=== PATIENT | female | born 1935 | race Caucasian/White ===

== ENCOUNTER → 2017-02-07 | Outpatient (CLI) | payer MEDICARE, OTHER | END | disposition home or self-care (01) | LOC: GMAJ 10:22 | PROVIDERS: ATTEND Family Medicine | DX: I10 Essential (primary) hypertension (principal); D51.3 Other dietary vitamin B12 deficiency anemia ==

== ENCOUNTER → 2017-06-06 | Outpatient (CLI) | payer MEDICARE, OTHER | LOC: GMAJ 10:17 | PROVIDERS: ATTEND Family Medicine | DX: E03.9 Hypothyroidism, unspecified (principal) ==

== ENCOUNTER 2017-10-18 10:31 | Emergency (ER) | payer MEDICARE, OTHER ==
[2017-10-18 11:30] VITALS: TEMP 97.7
[2017-10-18] MEDS ORDERED: HYDROcodone 5MG/APAP 325MG 1 EA TAB PO ONE (11:54)
--- NOTE | 2017-10-18 11:55 | RAD ---
EXAM DESCRIPTION: Ribs,Left 3 Views CLINICAL HISTORY: fall with rib injury COMPARISON: None Available. TECHNIQUE: AP And 2 oblique images left ribs. FINDINGS: Minimally displaced fractures of the lateral left eighth and ninth ribs. Nondisplaced fracture of the lateral left 10th rib. 2. Fracture sites in the ninth rib. No other fractures. Atelectasis in the left lung base. No pneumothorax. Bone density is decreased. Hydronephrosis in the left AC joint. No abnormal radiodense objects in the soft tissues. IMPRESSION: Minimally displaced fractures of the left lateral eighth and ninth ribs with 2 fracture sites in the ninth rib. Nondisplaced fracture lateral left 10th rib. Atelectasis in the left lung base. Electronically signed by: Elier Tirado MD 10/18/2017 11:54 AM [facility]
--- NOTE | 2017-10-18 11:58 | ED.PDOC ---
History of Present Illness - General Chief Complaint: General Stated Complaint: rib pain from fall this morning. 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 RIBS COLLIDED WITH TOILET. C/O L RIB PAIN. DENIES ANY OTHER PAIN. NO HEAD COLLISION. NO LOC. NO PAIN AT REST BUT PAIN WITH MVMT. NO PAIN WITH NL RESPIRATION BUT PAIN WITH DEEP BREATH. Severity: moderate Improving Factors: immobilization Worsening Factors: movement Associated Symptoms: denies symptoms Allergies/Adverse Reactions: Allergies NO KNOWN ALLERGY Allergy (Verified 11/15/16 18:19) Home Medications: Ambulatory Orders Amitriptyline HCl [Elavil] 50 mg PO DAILY 11/15/16 Aspirin [Aspirin Adult Low Dose] 81 mg PO DAILY 11/15/16 Atenolol [Tenormin] 50 mg PO BID 11/15/16 Insulin Glargine [Lantus Solostar] 10 unit SC DAILY 11/15/16 Levothyroxine Sodium [Synthroid] 112 mcg PO DAILY 11/15/16 Metformin HCl 1,000 mg PO BID 11/15/16 Omeprazole 40 mg PO DAILY 11/15/16 Pravastatin Sodium [Pravachol] 10 mg PO DAILY 11/15/16 Acetaminophen W/ Codeine [Tylenol W/ CODEINE #3] 1 ea PO Q6H PRN #30 10/18/17 Lisinopril 20 mg PO DAILY 10/18/17 Review of Systems - Review of Systems Constitutional: States: no symptoms reported EENTM: States: no symptoms reported Respiratory: Denies: cough, short of breath Musculoskeletal: Denies: back pain, neck pain Neurological: Denies: headache, paresthesia All other Systems: Reviewed and Negative Past Medical History (General) - Patient Medical History Hx Seizures: No Hx Stroke: No Hx Dementia: No Hx Asthma: No Hx of COPD: No Hx Cardiac Disorders: No Hx Congestive Heart Failure: No Hx Pacemaker: No Hx Hypertension: Yes Hx Thyroid Disease: Yes Hx Diabetes: Yes Hx Gastroesophageal Reflux: Yes Hx Renal Disease: No Hx Cancer: No Hx of HIV: No Hx Hepatitis C: No Hx MRSA: No Surgical History: cholecystectomy, gastric bypass, Hysterectomy - Vaccination History Hx Tetanus, Diphtheria Vaccination: Yes Hx Influenza Vaccination: No Hx Pneumococcal Vaccination: Yes - Social History Hx Tobacco Use: No Hx Chewing Tobacco Use: No Hx Alcohol Use: No Hx Substance Use: No Hx Substance Use Treatment: No Hx Depression: No Hx Physical Abuse: No Hx Emotional Abuse: No - Female History Patient : No Family Medical History - Family History Daughter Family History: Unknown Living Status: Still Living Physical Exam - Physical Exam General Appearance: Alert, Well Nourished Eye Exam: bilateral normal Ears, Nose, Throat: hearing grossly normal, normal ENT inspection Neck: non-tender, full range of motion Respiratory: chest non-tender, lungs clear Cardiovascular/Chest: normal peripheral pulses, regular rate, rhythm Peripheral Pulses: radial,right: 2+, radial,left: 2+ Gastrointestinal/Abdominal: non tender, soft Back Exam: normal inspection, no CVA tenderness, other - L POSTERIOR RIBS TTP. NO ECCHYMOSIS. Extremity: normal range of motion, non-tender Neurologic: alert, oriented x 3 Skin Exam: normal color, warm/dry Lymphatic: no adenopathy Progress - Results/Orders Results/Orders: PROLONGED STAY IN E.D. DUE TO TECHNICAL DIFFICULTIES (XRAY VIEWING WASN'T WORKING). NOW RESOLVED. XRAY - L RIB FRX AND DISPLACED 8, 9, 10. NO PTX. I AM CHECKING WITH DR. SRIVASTAVA, ORTHO, TO SEE IF HE REPAIRS RIBS SINCE I HAVE BEEN TOLD BY ORTHO THEY ARE NOW REPAIRING DISPLACED RIBS. DR. SRIVASTAVA DOES NOT REPAIR AND DOES NOT KNOW OF AN ORTHO WHO DOES. SUPPORTIVE CARE. 02 SATS 97% ON RA. RX NORCO PRN PAIN SO CAN VENTILATE WELL AND WILL ARRANGE FOR CLOSE F/U. Departure - Departure Clinical Impression: Traumatic closed displaced fracture of rib on left side, Ribs, multiple fractures Disposition: Discharge to Home or Self Care Condition: Fair Departure Forms: ED Discharge - Pt. Copy, Patient Portal Self Enrollment Instructions: DI for Rib Fracture Diet: resume usual diet Activity: increase activity as tolerated Referrals: Phil Tirado MD [Primary Care Provider] - 1-5 Days Prescriptions: Acetaminophen W/ Codeine [Tylenol W/ CODEINE #3] 1 ea PO Q6H PRN #30 PRN Reason: Pain Home Medications: Ambulatory Orders Amitriptyline HCl [Elavil] 50 mg PO DAILY 11/15/16 Aspirin [Aspirin Adult Low Dose] 81 mg PO DAILY 11/15/16 Atenolol [Tenormin] 50 mg PO BID 11/15/16 Insulin Glargine [Lantus Solostar] 10 unit SC DAILY 11/15/16 Levothyroxine Sodium [Synthroid] 112 mcg PO DAILY 11/15/16 Metformin HCl 1,000 mg PO BID 11/15/16 Omeprazole 40 mg PO DAILY 11/15/16 Pravastatin Sodium [Pravachol] 10 mg PO DAILY 11/15/16 Acetaminophen W/ Codeine [Tylenol W/ CODEINE #3] 1 ea PO Q6H PRN #30 10/18/17 Lisinopril 20 mg PO DAILY 10/18/17
[2017-10-18 13:06] VITALS: BP 150/74; O2SAT 96
== END 2017-10-18 13:00 | disposition home or self-care (01) ==
LOC: ER 10:31
DX: S22.42XA Multiple fractures of ribs, left side, initial encounter for closed fracture (principal); E11.9 Type 2 diabetes mellitus without complications; E07.9 Disorder of thyroid, unspecified; K21.9 Gastro-esophageal reflux disease without esophagitis; Z79.82 Long term (current) use of aspirin; Z79.899 Other long term (current) drug therapy; W19.XXXA Unspecified fall, initial encounter; Y92.002 Bathroom of unspecified non-institutional (private) residence as the place of occurrence of the external cause

== ENCOUNTER 2017-10-21 19:16 | Emergency (ER) | payer MEDICARE, OTHER ==
[2017-10-21 19:50] VITALS: TEMP 98.4
--- NOTE | 2017-10-21 20:29 | ED.PDOC ---
History of Present Illness - General Chief Complaint: General Stated Complaint: over sedated on home pain meds Time Seen by Provider: 10/21/17 20:16 Source: patient Exam Limitations: no limitations - History of Present Illness Initial Comments: Arianna Massey 82 y/o female stated that she slipped and fell on 10/18/2017 and had 3 rib fractures left 8/9/10th ribs no pneumothorax but continue to have rib pain was prescribed tylenol 3 and tramadol for the pain but had been slleping a lot .Family stated that she did not urinate today but patient claimrd to have gone to bathroom 3 x to urinat.No nausea/vomiting/ diarrhea .Patient talking ang wanting to go home Timing/Duration: other - 4 days ago Severity: moderate Improving Factors: rest Worsening Factors: movement Associated Symptoms: denies symptoms Allergies/Adverse Reactions: Allergies NO KNOWN ALLERGY Allergy (Verified 10/21/17 19:33) Home Medications: Ambulatory Orders Amitriptyline HCl [Elavil] 50 mg PO DAILY 11/15/16 Aspirin [Aspirin Adult Low Dose] 81 mg PO DAILY 11/15/16 Atenolol [Tenormin] 50 mg PO BID 11/15/16 Insulin Glargine [Lantus Solostar] 10 unit SC DAILY 11/15/16 Levothyroxine Sodium [Synthroid] 112 mcg PO DAILY 11/15/16 Metformin HCl 1,000 mg PO BID 11/15/16 Omeprazole 40 mg PO DAILY 11/15/16 Pravastatin Sodium [Pravachol] 10 mg PO DAILY 11/15/16 Acetaminophen W/ Codeine [Tylenol W/ CODEINE #3] 1 ea PO Q6H PRN #30 10/18/17 Lisinopril 20 mg PO DAILY 10/18/17 Review of Systems - Review of Systems Constitutional: States: no symptoms reported EENTM: States: no symptoms reported Respiratory: States: see HPI Cardiology: States: no symptoms reported Gastrointestinal/Abdominal: States: no symptoms reported Genitourinary: States: no symptoms reported Past Medical History (General) - Patient Medical History Hx Seizures: No Hx Stroke: No Hx Dementia: No Hx Asthma: No Hx of COPD: No Hx Cardiac Disorders: No Hx Congestive Heart Failure: No Hx Pacemaker: No Hx Hypertension: Yes Hx Thyroid Disease: Yes Hx Diabetes: Yes Hx Gastroesophageal Reflux: Yes Hx Renal Disease: No Hx Cancer: No Hx of HIV: No Hx Hepatitis C: No Hx MRSA: No Surgical History: gastric bypass, Hysterectomy, other - Vaccination History Hx Tetanus, Diphtheria Vaccination: Yes Hx Influenza Vaccination: No Hx Pneumococcal Vaccination: Yes - Social History Hx Tobacco Use: No Hx Chewing Tobacco Use: No Hx Alcohol Use: No Hx Substance Use: No Hx Substance Use Treatment: No Hx Depression: No Hx Physical Abuse: No Hx Emotional Abuse: No - Female History Patient is a Female of Child Bearing Age (10 -59 yrs old): No Patient : No Family Medical History - Family History Daughter Family History: Unknown Living Status: Still Living Physical Exam - Physical Exam General Appearance: Alert, Comfortable, No apparent distress Eye Exam: bilateral normal Ears, Nose, Throat: hearing grossly normal Neck: non-tender, full range of motion, supple Respiratory: normal breath sounds, other - tenderness left lower rib cage with ecchymosis Cardiovascular/Chest: regular rate, rhythm, no gallop, no murmur Peripheral Pulses: radial,right: 2+, radial,left: 2+ Gastrointestinal/Abdominal: normal bowel sounds, non tender, soft, no organomegaly Extremity: no pedal edema, no calf tenderness Neurologic: no motor/sensory deficits, alert, normal mood/affect, oriented x 3 Skin Exam: normal color, warm/dry Progress - Progress Progress: 10/21/17 20:36 Last Vital Signs Temp 98.4 F 10/21/17 19:34 Pulse 83 10/21/17 19:34 Resp 18 10/21/17 19:34 BP 109/64 10/21/17 19:34 Pulse Ox 89 L 10/21/17 19:34 Departure - Departure Clinical Impression: Rib pain on left side, History of fractured rib Time of Disposition: 20:39 Disposition: Discharge to Home or Self Care Condition: Good Departure Forms: ED Discharge - Pt. Copy, Patient Portal Self Enrollment Referrals: Phil Tirado MD [Primary Care Provider] - 1-2 Weeks Home Medications: Ambulatory Orders Amitriptyline HCl [Elavil] 50 mg PO DAILY 11/15/16 Aspirin [Aspirin Adult Low Dose] 81 mg PO DAILY 11/15/16 Atenolol [Tenormin] 50 mg PO BID 11/15/16 Insulin Glargine [Lantus Solostar] 10 unit SC DAILY 11/15/16 Levothyroxine Sodium [Synthroid] 112 mcg PO DAILY 11/15/16 Metformin HCl 1,000 mg PO BID 11/15/16 Omeprazole 40 mg PO DAILY 11/15/16 Pravastatin Sodium [Pravachol] 10 mg PO DAILY 11/15/16 Acetaminophen W/ Codeine [Tylenol W/ CODEINE #3] 1 ea PO Q6H PRN #30 10/18/17 Lisinopril 20 mg PO DAILY 10/18/17 Additional Instructions: Need to take [place] 10 mg -1/2 tablet every 6 -8 hours for pain;Recheck with primary Md call for appointment as needed may use Aspercreme lidocaine parch daily to affected area
[2017-10-21] MEDS ORDERED: HYDROCOD/APAP 10/325 (ER DISP) # 3 tablets PO ONE (20:38)
[2017-10-21] MEDS ORDERED: IPRATROPIUM/ALBUTEROL 3 ML VIAL NEB ONE (21:00)
--- NOTE | 2017-10-21 21:56 | RAD ---
EXAM DESCRIPTION: Chest,1 View CLINICAL HISTORY: history of rib fracture COMPARISON: 10/18/2017 FINDINGS: No pneumothorax is seen. There is however a [id number] left pleural effusion, perhaps hemothorax, that has developed along with mild atelectasis at the left lung base. Right lung is clear. Cardiac silhouette is within normal limits. IMPRESSION: No pneumothorax but fluid suggests left hemothorax. Electronically signed by: Elier Jean 10/21/2017 9:55 PM INSTALLMENT ACCOUNT CHECKER
[2017-10-21 22:35] VITALS: BP 115/55; O2SAT 92
== END 2017-10-21 22:35 | disposition home or self-care (01) ==
LOC: ER 19:16
DX: S22.42XD Multiple fractures of ribs, left side, subsequent encounter for fracture with routine healing (principal); I10 Essential (primary) hypertension; E07.9 Disorder of thyroid, unspecified; E11.9 Type 2 diabetes mellitus without complications; Z79.82 Long term (current) use of aspirin; Z79.4 Long term (current) use of insulin; Z79.899 Other long term (current) drug therapy; W01.0XXD Fall on same level from slipping, tripping and stumbling without subsequent striking against object, subsequent encounter
CPT/HCPCS: 36416; 71010; 82948; 94640; J7620

== ENCOUNTER → 2018-01-02 | Outpatient (CLI) | payer MEDICARE, OTHER | LOC: GMAJ 11:25 | PROVIDERS: ATTEND Family Medicine | DX: E03.9 Hypothyroidism, unspecified (principal) ==

== ENCOUNTER → 2018-04-24 | Outpatient (CLI) | payer MEDICARE, OTHER | LOC: GMAJ 11:01 | PROVIDERS: ATTEND Family Medicine | DX: E03.9 Hypothyroidism, unspecified (principal) ==

== ENCOUNTER → 2018-09-12 | Outpatient (CLI) | payer MEDICARE, OTHER | LOC: GMAJ 15:06 | PROVIDERS: ATTEND Family Medicine | DX: E03.9 Hypothyroidism, unspecified (principal) ==

== ENCOUNTER → 2018-09-15 | Outpatient (CLI) | payer MEDICARE, OTHER ==
--- NOTE | 2018-09-15 09:35 | RAD ---
EXAM DESCRIPTION: Hand,Right 3 Views CLINICAL HISTORY: PAIN IN RIGHT HAND COMPARISON: None. IMPRESSION: 3 views of the right hand show diffuse osteopenia the osseous structures without evidence of acute fracture, focal bone destruction, or joint dislocation. 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 Mild flexion of the second of the IP joint is seen. There is mild to moderate narrowing of the other interphalangeal joints of the second through fifth fingers and mild joint line osteophytes consistent with mild to moderate osteoarthritic changes. 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 Electronically signed by: Greg Kimbrough MD 09/15/2018 9:34 AM CDT
== END ==
LOC: RAD 09:05
PROVIDERS: ATTEND Orthopaedic Surgery
DX: Z01.818 Encounter for other preprocedural examination (principal); M18.9 Osteoarthritis of first carpometacarpal joint, unspecified; M79.641 Pain in right hand

== ENCOUNTER → 2018-09-25 | Outpatient (CLI) | payer MEDICARE, OTHER | LOC: GMAJ 14:18 | PROVIDERS: ATTEND Family Medicine | DX: D64.9 Anemia, unspecified (principal); E53.8 Deficiency of other specified B group vitamins ==

== ENCOUNTER 2018-10-03 05:33 | Day surgery (SDC) | payer MEDICARE, OTHER ==
--- NOTE | 2018-10-02 11:35 | HP ---
CHIEF COMPLAINT: Right hand numbness. HISTORY OF PRESENT ILLNESS: Ms. Massey is an 82-year-old female with a history of numbness in the digits. She has had this to the point where it is on a continual basis and has been going on for at least one year. She denies any trauma, any radiation of pain and denies any numbness along the ulnar aspect of the hand. She has had carpal tunnel release on the left. Because of her ongoing symptoms, she has requested operative intervention. After discussing the risks, benefits and alternatives to that, the patient has given informed consent. PAST SURGICAL HISTORY: 1. Carpal tunnel release. MEDICATIONS: 1. Omeprazole. 2. Atenolol. 3. Metformin. 4. Lantus. 5. Levothyroxine. 6. Lisinopril. 7. Pravastatin. 8. Amitriptyline. 9. Aspirin. 10. Vitamins. ALLERGIES: NO KNOWN DRUG ALLERGIES. CODE STATUS: Full code. IMMUNIZATIONS: Up to date. FAMILY HISTORY: None pertinent to today's complaint. SOCIAL HISTORY: The patient does not drink, smoke or use any illicit drugs. REVIEW OF SYSTEMS: Negative except as indicated in the History of Present Illness. PHYSICAL EXAMINATION: VITAL SIGNS: Blood pressure 130/69. Pulse 82. Height 5'2". Weight 137 pounds. MENTAL STATUS: The patient is awake, alert, and is able to give a good history and participate in the physical. The patient is oriented to person, place and time. SKIN: Normal tone and turgor. MUSCULOSKELETAL: She is having paresthesias at this time. She has an equivocal carpal compression test and Tinel's. Sensation is intact along the ulnar aspect of the hand. She has some slight thenar atrophy. She maintains full range of motion of the digits and full strength. ASSESSMENT: 1. Carpal tunnel syndrome. PLAN: The plan at this point is for carpal tunnel release. We have discussed the risks, benefits, and alternatives to that and the patient has given informed consent. #[id number] [facility]
[2018-10-03] MEDS ORDERED: LACTATED RINGERS 1,000 ML ONE (05:53)
[2018-10-03] MEDS ORDERED: BUPIVACAINE 0.25% INJ 30 ML VIAL INJ ONE (06:33)
[2018-10-03] MEDS ORDERED: LIDOCAINE 1% 10 ML VIAL INJ ONE ×2 (06:34→10:00)
[2018-10-03] MEDS ORDERED: SODIUM CHL 0.9% 50ML MIN-BAG+ 50 ML IVPB ONE (06:42)
[2018-10-03] MEDS ORDERED: ceFAZolin SODIUM 1 GM VIAL ONE (06:42)
[2018-10-03] MEDS: ceFAZolin SODIUM 1 GM VIAL ONE ×2 (07:25→07:28)
[2018-10-03] MEDS: VANCOMYCIN HCL INJ 1,000 MG VIAL IVPB ONE ×2 (07:25→07:28)
[2018-10-03 08:26] VITALS: BP 148/78; TEMP 96.9; O2SAT 97
[2018-10-03] MEDS ORDERED: PROPOFOL 200 MG/20 ML VIAL IV ONE (10:00)
--- NOTE | 2018-10-03 14:09 | OP ---
DATE OF PROCEDURE: 10/03/18 PREOPERATIVE DIAGNOSIS: 1. Carpal tunnel syndrome. POSTOPERATIVE DIAGNOSIS: 1. Carpal tunnel syndrome. PROCEDURE: 1. Carpal tunnel release. SURGEON: Tommie Islas MD. MELANGEUR OPERATOR: Elier Alvarez CST, SA-C. ANESTHESIA: Local with sedation. COMPLICATIONS: None. FINDINGS: Thickening of the transverse carpal ligament. INDICATION: Ms. Massey has a history of carpal tunnel symptoms that have been refractory to conservative measures. Because of her ongoing symptoms, the patient has requested operative intervention. After discussing the risks, benefits and alternatives to that, the patient has given informed consent for carpal tunnel release. PROCEDURE: The patient was brought to the Operating Room and placed in the supine position. Sedation was administered and local anesthetic was injected into the operative area under sterile conditions. After the injection of anesthetic, the arm was sterilely prepped and draped. A longitudinal incision was made directly overlying the transverse carpal ligament and blunt dissection was carried down to the ligament. The transverse carpal ligament was sharply transected along its length and a Coleridge elevator was used to ensure complete release of the ligament. Once release had been confirmed, the wound was thoroughly irrigated and the wound was closed with Nylon suture. A sterile dressing was placed and the patient was taken to the Day Surgery Unit. POSTOPERATIVE PLAN: The patient has been encouraged to do range of motion of the digits and will followup with us in two days. #[id number] [facility]
== END 2018-10-03 08:20 | disposition home or self-care (01) ==
LOC: AMB 05:33
PROVIDERS: ATTEND Orthopaedic Surgery
DX: G56.01 Carpal tunnel syndrome, right upper limb (principal); I10 Essential (primary) hypertension; E11.9 Type 2 diabetes mellitus without complications; K21.9 Gastro-esophageal reflux disease without esophagitis; Z79.82 Long term (current) use of aspirin; Z79.4 Long term (current) use of insulin; Z79.899 Other long term (current) drug therapy
CPT/HCPCS: 01810; 36416; 64721; 82948; J0690; J3370; J3490; J7050; J7120

== ENCOUNTER → 2019-01-17 | Outpatient (CLI) | payer MEDICARE, OTHER | LOC: GMAJ 10:54 | PROVIDERS: ATTEND Family Medicine | DX: E03.9 Hypothyroidism, unspecified (principal) ==

== ENCOUNTER → 2020-03-07 | Outpatient (CLI) | payer MEDICARE, OTHER | LOC: NC 09:15 | PROVIDERS: ATTEND Family Medicine | DX: I10 Essential (primary) hypertension (principal); E11.9 Type 2 diabetes mellitus without complications; E78.2 Mixed hyperlipidemia; E03.9 Hypothyroidism, unspecified ==

== ENCOUNTER → 2020-08-13 | Outpatient (CLI) | payer MEDICARE, OTHER | LOC: GMAJ 11:03 | PROVIDERS: ATTEND Family Medicine | DX: E03.9 Hypothyroidism, unspecified (principal); E78.00 Pure hypercholesterolemia, unspecified; I10 Essential (primary) hypertension; E11.9 Type 2 diabetes mellitus without complications ==